=== PATIENT | male | born 1960 | race Two or more races ===

== ENCOUNTER 2019-07-30 11:28 | Emergency (ER) | payer MEDICAID ==
[~2019-07-30] VITALS: Ht 180.3 cm; Wt 101.0 kg
[2019-07-30] MEDS ORDERED: SODIUM CHLORIDE 0.9% 1,000 ML IV ONE (12:48)
[2019-07-30] MEDS ORDERED: METOCLOPRAMIDE HCL 10MG/2ML VIAL IV ONE (13:00)
[2019-07-30] MEDS ORDERED: MORPHINE SULFATE 4 MG/ML CPJ (NOT FOR IM USE) IV ONE ×2 (13:00→16:30)
[2019-07-30 13:02] LABS: CHLORIDE 109 mEq/L (98-107)
[2019-07-30 13:05] LABS: BASOPHILS % 0.4 % (0.0-2.0); EOSINOPHILS % 0.5 % (0.0-5.0); HEMATOCRIT. 43.9 % (42.0-52.0); HEMOGLOBIN. 14.1 g/dL (14.0-18.0); LYMPHOCYTES % 16.8 % (20.0-50.0); MEAN CORPUSCULAR HEMOGLOBIN 25.7 pg (28.0-32.0); MEAN CORPUSCULAR VOLUME 80.1 fL (80.0-94.0); MONOCYTES % 8.5 % (2.0-8.0); NEUTROPHILS % 73.8 % (40.0-76.0); PLATELET 217 x1000/uL (130-400); RED BLOOD CELL COUNT 5.49 mill/uL (4.7-6.1); RED CELL DISTRIBUTION WIDTH 17.5 % (11.6-14.6)
[2019-07-30 13:10] LABS: PHOSPHORUS 2.7 mg/dL (2.5-4.9)
[2019-07-30] MEDS ORDERED: KETOROLAC 30MG/ML VIAL IV ONE (14:15)
[2019-07-30 14:47] LABS: INR 1.2; PROTHROMBIN TIME 12.2 sec (9.6-11.0)
[2019-07-30 17:00] VITALS: BP 118/71
[2019-08-25] MEDS ORDERED: RIVA20TA PO (01:10)
[2019-08-25] MEDS ORDERED: CARV12.545 MT (01:10)
[2019-08-25] MEDS ORDERED: SACU1TAB7 MT (01:10)
[2019-08-25] MEDS ORDERED: SPIR25TA6 MT (01:10)
[2019-08-25] MEDS ORDERED: PREG150C46 PO (01:10)
[2019-08-25] MEDS ORDERED: FURO40TA5 MT (01:10)
[2019-08-25] MEDS ORDERED: ATOR40TA70 PO (01:10)
[2019-08-25] MEDS ORDERED: DULO30CA52 PO (01:10)
[2019-08-25] MEDS ORDERED: ASPI-1393 PO (01:10)
[2019-08-25] MEDS ORDERED: FLUO-124 PO (01:10)
[2019-08-25] MEDS ORDERED: URSO300C4 PO (01:10)
[2019-08-25] MEDS ORDERED: FLUO20TA29 PO (01:10)
[2019-08-25] MEDS ORDERED: FAMO40TA7 PO (01:10)
== END 2019-07-30 17:15 | disposition home or self-care (01) ==
LOC: ER 11:28
DX: M79.10 Myalgia, unspecified site (principal); R51 Headache; R20.2 Paresthesia of skin; M79.602 Pain in left arm; M79.601 Pain in right arm; E78.00 Pure hypercholesterolemia, unspecified; I11.0 Hypertensive heart disease with heart failure; I50.9 Heart failure, unspecified; K76.9 Liver disease, unspecified; I48.91 Unspecified atrial fibrillation
CPT/HCPCS: 36415; 70450; 80053; 83605; 83690; 83735; 84100; 84443; 84484; 85025; 85610; 93005; 96374; 96375; 96376; 99284; J1885; J2270; J2765; J7030

== ENCOUNTER 2019-10-25 08:29 | Emergency (ER) | payer MEDICAID ==
[~2019-10-25] VITALS: Ht 180.3 cm; Wt 103.5 kg
[~2019-10-25 08:29] MED LIST: ASPI-1497 PO; ATOR40TA70 PO; CARV12.545 MT; DULO30CA52 PO; FAMO40TA7 PO; FLUO20CA39 PO; FLUO20TA29 PO; FURO40TA5 MT; PREG150C46 PO; RIVA20TA PO; SACU1TAB7 MT; SPIR25TA6 MT; URSO300C4 PO
[2019-10-25 10:48] LABS: BASOPHILS % 0.3 % (0.0-2.0); EOSINOPHILS % 2.6 % (0.0-5.0); HEMATOCRIT. 51.4 % (42.0-52.0); HEMOGLOBIN. 16.9 g/dL (14.0-18.0); MEAN CORPUSCULAR HEMOGLOBIN 27.5 pg (28.0-32.0); MEAN CORPUSCULAR VOLUME 83.6 fL (80.0-94.0); MEAN PLATELET VOLUME 7.8 fl (7.4-10.4); MONOCYTES % 8.4 % (2.0-8.0); NEUTROPHILS % 74.7 % (40.0-76.0); PLATELET 187 x1000/uL (130-400); RED BLOOD CELL COUNT 6.15 mill/uL (4.7-6.1); RED CELL DISTRIBUTION WIDTH 19.3 % (11.6-14.6)
[2019-10-25 10:54] LABS: CHLORIDE 105 mEq/L (98-107)
[2019-10-25] MEDS ORDERED: KETOROLAC 15MG/ML VIAL IV ONE (11:30)
[2019-10-25] MEDS ORDERED: ONDANSETRON HCL 4MG/2ML INJ IV STA (11:31)
[2019-10-25] MEDS ORDERED: MORPHINE SULFATE 4 MG/ML CPJ (NOT FOR IM USE) IV STA (11:31)
[2019-10-25 11:50] LABS: CLARITY URINE CLEAR (CLEAR); COLOR URINE YELLOW (YELLOW); KETONES URINE NEGATIVE (NEGATIVE); LEUKOCYTE ESTERASE URINE NEGATIVE (NEGATIVE); NITRITE URINE NEGATIVE (NEGATIVE); OCCULT BLOOD URINE NEGATIVE (NEGATIVE); PH URINE 5.5 (4.5-8.0); PROTEIN URINE NEGATIVE (NEGATIVE); SPECIFIC GRAVITY URINE 1.018 (1.005-1.030); UROBILINOGEN URINE 0.2 E.U./dL (0.2-1.0)
[2019-10-25] MEDS ORDERED: ACETAMINOPHEN WITH CODEINE 300/30MG TABLET PO ONE (15:00)
[2019-10-25 15:13] VITALS: BP 122/77
== END 2019-10-25 15:33 | disposition home or self-care (01) ==
LOC: ER 08:29
DX: R10.9 Unspecified abdominal pain (principal); I11.0 Hypertensive heart disease with heart failure; I50.9 Heart failure, unspecified; R33.9 Retention of urine, unspecified; M79.10 Myalgia, unspecified site; E78.00 Pure hypercholesterolemia, unspecified; I25.2 Old myocardial infarction; Z79.899 Other long term (current) drug therapy; Z79.82 Long term (current) use of aspirin
CPT/HCPCS: 36415; 71045; 74176; 80053; 81003; 83880; 84484; 85025; 93005; 96374; 96375; 99284; J1885; J2270; J2405

== ENCOUNTER 2020-05-01 17:02 | Emergency (ER) | payer MEDICAID ==
[~2020-05-01] VITALS: Ht 180.3 cm; Wt 104.5 kg
[2020-05-01 18:36] LABS: BASOPHILS % 0.4 % (0.0-2.0); EOSINOPHILS % 1.6 % (0.0-5.0); HEMATOCRIT. 45.9 % (42.0-52.0); LYMPHOCYTES % 17.1 % (20.0-50.0); MEAN CORPUSCULAR HEMOGLOBIN 26.4 pg (28.0-32.0); MEAN CORPUSCULAR VOLUME 81.1 fL (80.0-94.0); MEAN PLATELET VOLUME 7.6 fl (7.4-10.4); MONOCYTES % 10.7 % (2.0-8.0); NEUTROPHILS % 70.2 % (40.0-76.0); PLATELET 201 x1000/uL (130-400); RED BLOOD CELL COUNT 5.66 mill/uL (4.7-6.1); RED CELL DISTRIBUTION WIDTH 19.2 % (11.6-14.6)
[2020-05-01] MEDS ORDERED: ACETAMINOPHEN 325MG TABLET PO ONE (18:45)
[2020-05-01] MEDS ORDERED: METOCLOPRAMIDE HCL 10MG/2ML VIAL IV ONE (18:45)
[2020-05-01] MEDS ORDERED: KETOROLAC 15MG/ML VIAL IV ONE (18:45)
[2020-05-01 18:46] LABS: CHLORIDE 104 mEq/L (98-107); PROTHROMBIN TIME 10.3 sec (9.6-11.0)
[2020-05-01 18:52] LABS: ETHANOL BLOOD < 10 mg/dL
[2020-05-01 18:55] LABS: LDL CHOLESTEROL 178 mg/dL (5-100)
[2020-05-01] MEDS ORDERED: MORPHINE SULFATE 4 MG/ML CPJ (NOT FOR IM USE) IV ONE (19:45)
[2020-05-01 20:23] LABS: CLARITY URINE CLEAR (CLEAR); COLOR URINE YELLOW (YELLOW); KETONES URINE NEGATIVE (NEGATIVE); LEUKOCYTE ESTERASE URINE NEGATIVE (NEGATIVE); NITRITE URINE NEGATIVE (NEGATIVE); OCCULT BLOOD URINE NEGATIVE (NEGATIVE); PROTEIN URINE NEGATIVE (NEGATIVE); UROBILINOGEN URINE 0.2 E.U./dL (0.2-1.0)
[2020-05-01 20:35] LABS: *AMPHETAMINES SCREEN URINE NEGATIVE (NEGATIVE); *BARBITURATES SCREEN URINE NEGATIVE (NEGATIVE); *BENZODIAZEPINES SCREEN URINE NEGATIVE (NEGATIVE); *COCAINE SCREEN URINE NEGATIVE (NEGATIVE)
[2020-05-01 20:36] LABS: CANNABINOID URINE SCREEN NEGATIVE (NEGATIVE); METHADONE URINE SCREEN NEGATIVE (NEGATIVE); OPIATES URINE SCREEN NEGATIVE (NEGATIVE); PHENCYCLIDINE URINE SCREEN NEGATIVE (NEGATIVE)
[2020-05-01] MEDS ORDERED: IOHEXOL-350 100 ML BOTTLE ONE (21:21)
[2020-05-01 23:22] VITALS: BP 138/76
== END 2020-05-01 23:24 | disposition home or self-care (01) ==
LOC: ER 17:02 → CANBEDREQ 23:27
DX: R07.89 Other chest pain (principal); I48.91 Unspecified atrial fibrillation; E78.00 Pure hypercholesterolemia, unspecified; I11.0 Hypertensive heart disease with heart failure; I50.9 Heart failure, unspecified
CPT/HCPCS: 36415; 70450; 71045; 71275; 80053; 80305; 80320; 81003; 82962; 83721; 84484; 85025; 85610; 93005; 96374; 96375; 99285; J1885; J2270; J2765; Q9967; G0480